=== PATIENT | male | born 1985 | race Caucasian/White ===

== ENCOUNTER 2018-07-07 11:26 | Emergency (ER) | payer MEDICAID ==
[2018-07-07 11:37] VITALS: BMI 23.7
[2018-07-07] MEDS ORDERED: TDAP Vaccine 0.5 mL Syr IM ONE (12:02)
[2018-07-07] MEDS ORDERED: Silver Sulfadiazine 1% Cream (25 gm) TP STA (12:05)
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
[2018-07-07 12:57] VITALS: BP 148/80; PULSE 86; RESP 18; TEMP 98.1; O2SAT 97
== END 2018-07-07 12:56 | disposition home or self-care (01) ==
LOC: ED 11:26
DX: T23.102A Burn of first degree of left hand, unspecified site, initial encounter (principal); X17.XXXA Contact with hot engines, machinery and tools, initial encounter; F17.210 Nicotine dependence, cigarettes, uncomplicated; Z23 Encounter for immunization